=== PATIENT | female | born 1995 | race Caucasian/White ===

== ENCOUNTER 2019-01-12 11:44 | Emergency (ER) ==
[2019-01-12 11:45] VITALS: BMI 16.6
[2019-01-12 11:53] VITALS: BP 107/68; TEMP 97.8
[2019-01-12] MEDS ORDERED: FUL-GLO OP STA (11:57)
[2019-01-12] MEDS ORDERED: TETRACAINE 0.5% OPTH SOL OP STA (11:57)
[2019-01-12] MEDS ORDERED: EYE-STREAM OP STA (11:57)
[2019-01-12] MEDS ORDERED: TETRACAINE 0.5% UNIT-DOSE OP ONE (12:04)
[2019-01-12] MEDS ORDERED: ERYTHROMYCIN OP STA (12:14)
--- NOTE | 2019-01-12 12:17 | ED.PDOC ---
General ED Provider: Dr. CHIDI ZAMORANO Chief Complaint: Eye Problem Stated Complaint: patient's sun poked eye with finger this morning. Comes in with severe pain and eye tearing. Time Seen by Physician: 12:14 Mode of Arrival: Walk-In Information Source: Patient Exam Limitations: No limitations Primary Care Provider: LOBO PACHECO Nursing and Triage Documentation Reviewed and Agree: Yes Does patient meet sepsis criteria?: No System Inflammatory Response Syndrome: Not Applicable Sepsis Protocol: For patient's 13 years and over: Temp is 96.8 and below OR 101 and greater Pulse >90 BPM Resp >20/minute Acutely Altered Mental Status Are patient's symptoms suggestive of a new infection, such as: -Pneumonia -Skin, Soft Tissue -Endocarditis -UTI -Bone, Joint Infection -Implantable Device -Acute Abdominal Infection -Wound Infection -Meningitis -Blood Stream Catheter Infection -Unknown EENT Complaint Exam - Eye Complaint/Exam Onset/Duration: 1 hour Symptoms Are: Still present Timing: Constant Initial Severity: Severe Current Severity: Severe Location: Left Character: Reports: Throbbing Aggravating: Reports: Light, Blinking Alleviating: Reports: None Associated Signs and Symptoms: Reports: Photophobia, Clear drainage. Denies: Vision impairment, Fever, Swelling Related History: Reports: Trauma (with a finger by son accidentally ) Eye Surgical History: Reports: None Globe Rupture Risk Factors: None Acute Glaucoma Risk Factors: None Optic Artery Occlusion Risk Factors: None Visual Acuity Right Eye: 20/25 Visual Acuity Left Eye: 20/100 after mediation given Visual Field: Normal Extraocular Movement: Normal Orbit Findings: Normal Globe Findings: Intact Lid Findings: Erythema Conjunctival Findings: Exudate Fluorescein Uptake: Yes (at the 3-4 oclock position meauring 3 mm square shapped ) Fundi: Not visualized (uncooperative ) Slit Lamp Used: No Eye Picture: 1 - Corneal abrassion with uptake of flurocine Differential Diagnoses: Corneal Abrasion, Foreign Body, Keratitis Review of Systems - Review Of Systems Constitutional: Reports: No symptoms Eyes: Reports: Drainage, Pain Ears, Nose, Mouth, Throat: Reports: No symptoms Respiratory: Reports: No symptoms Cardiac: Reports: No symptoms GI: Reports: No symptoms : Reports: No symptoms Musculoskeletal: Reports: No symptoms Skin: Reports: No symptoms Neurological: Reports: Anxiety Endocrine: Reports: No symptoms Hematologic/Lymphatic: Reports: No symptoms All Other Systems: Reviewed and Negative Past Medical History - Past Medical History Endocrine: Reports: Unknown Cardiovascular: Reports: Unknown Respiratory: Reports: Unknown Hematological: Reports: Unknown Gastrointestinal: Reports: Unknown Genitourinary: Reports: Unknown Neuro/Psych: Reports: Unknown Musculoskeletal: Reports: Unknown Cancer: Reports: Unknown Last Menstrual Period: last month - Surgical History General Surgical History: Reports: Other - Family History Family History: Reports: Other - Social History Smoking Status: Current every day smoker, Light tobacco smoker Hx Substance Use: No Alcohol Screening: None Physical Exam - Physical Exam Appearance: Ill-appearing Ill-appearing: Mild Pain Distress: Severe Eyes: Conjunctiva inflammed Neck: Supple Respiratory: Airway patent Neurological: Alert, Oriented Psychiatric: Anxious Re-Evaluation - Re-Evaluation Time of Re-Evaluation: 12:55 Status: Improved Pain Level: Better. Critical Care Note - Critical Care Note Total Time (mins): 0 Course - Course Orders, Labs, Meds: Orders Category Date Time Status Balanced Salt Solution [Eye-Stream] MEDS 01/12/19 11:57 Stat 1 bottle OP ONCE STA Erythromycin Opth Oint [Erythromycin] MEDS 01/12/19 12:14 Stat 1 applic OP ONCE STA Fluorescein Sodium [Ful-Josy] MEDS 01/12/19 11:57 Stat 1 strip OP ONCE STA Tetracaine HCl [Tetracaine 0.5% Opth Diane] MEDS 01/12/19 11:57 Stat 2 drop OP ONCE STA Tetracaine HCl/Pf [Tetracaine 0.5% Unit-Dose] MEDS 01/12/19 12:04 Discontinued 1 drop OP .STK-MED ONE Medications Discontinued Medications Generic Name Dose Route Start Last Admin Trade Name Freq PRN Reason Stop Dose Admin Eye Irrigation Solution 1 bottle 01/12/19 11:57 Eye-Stream OP 01/12/19 11:58 ONCE STA Fluorescein Sodium 1 strip 01/12/19 11:57 Ful-Josy OP 01/12/19 11:58 ONCE STA Tetracaine HCl 2 drop 01/12/19 11:57 Tetracaine 0.5% Opth Diane OP 01/12/19 11:58 ONCE STA Vital Signs: Temp Pulse Resp BP Pulse Ox 01/12/19 11:46 97.8 F 89 18 107/68 97 Departure - Departure Time of Disposition: 12:15 Disposition: HOME SELF-CARE Discharge Problem: Corneal abrasion, left Qualifiers: Encounter type: initial encounter Qualified Code(s): S05.02XA - Injury of conjunctiva and corneal abrasion without foreign body, left eye, initial encounter Instructions: Corneal Abrasion (ED) Condition: Stable Pt referred to PMD for follow-up: Yes IPMP verified?: No Additional Instructions: Use eye ointment three time a day for 10 days Take Motrin as needed for pain. Follow up with your eye doctor in 3 days Prescriptions: Ibuprofen [Motrin] 600 mg PO Q6H PRN #30 tablet PRN Reason: Analgesia Allergies/Adverse Reactions: Allergies No Known Allergies Allergy (Verified 01/12/19 11:53) Home Medications: Ambulatory Orders Ibuprofen [Motrin] 600 mg PO Q6H PRN #30 tablet 01/12/19 Disposition Discussed With: Patient, Family
== END 2019-01-12 13:10 | disposition home or self-care (01) ==
LOC: ED 11:44
DX: S05.02XA Injury of conjunctiva and corneal abrasion without foreign body, left eye, initial encounter (principal); W50.0XXA Accidental hit or strike by another person, initial encounter; F17.210 Nicotine dependence, cigarettes, uncomplicated
CPT/HCPCS: 99283